=== PATIENT | female | born 1970 | race Caucasian/White ===

== ENCOUNTER 2016-12-28 10:53 | Observation (INO) | payer OTHER ==
[2016-12-28 11:06] VITALS: BMI 27.3
--- NOTE | 2016-12-28 11:24 | ED PDOC ---
Arrival/HPI - General Time Seen by Provider: 12/28/16 11:04 Historian: Patient - History of Present Illness Narrative History of Present Illness (Text): 12/28/16 11:19 Patient is a 46 year old female who presents to the emergency department with nasal congestion and sore throat that began 2 days ago and chest heaviness since yesterday. She states the sore throat resolved. Yesterday she states she began to experience chest heaviness that is worse when lying down. She states that taking a deep breath makes her cough. Patient also reports some abdominal discomfort. Denies dizziness, nausea, vomiting, or other complaints. Denies recent travel or prolonged immobilization. No history of DVT or PE. Patient reports she quit smoking 3 months ago. Patient also reports family history of cardiac disease. PMD: Dr. Cordova Time/Duration: < week Symptom Onset: Gradual Symptom Course: Unchanged Activities at Onset: Light Past Medical History - Provider Review Nursing Documentation Reviewed: Yes - Infectious Disease Hx of Infectious Diseases: None - Psychiatric Hx Substance Use: No - Surgical History Other/Comment: NODULES REMOVED FROM THROAT - Anesthesia Hx Anesthesia: No Hx Anesthesia Reactions: No Family/Social History - Physician Review Nursing Documentation Reviewed: Yes Family/Social History: CAD/TN Smoking Status: Current Some Days Smoker Hx Alcohol Use: No Hx Substance Use: No Allergies/Home Meds Allergies/Adverse Reactions: Allergies No Known Allergies Allergy (Verified 12/28/16 11:20) Home Medications: Home Meds Medication Instructions Recorded Confirmed No Known Home Med 12/28/16 12/28/16 Review of Systems - Review of Systems Constitutional: Fatigue. absent: Fevers Eyes: absent: Vision Changes, Eye Pain ENT: Sore Throat (resolved), Sinus Congestion Respiratory: Cough Cardiovascular: Chest Pain Gastrointestinal: Abdominal Pain. absent: Stool Changes, Nausea, Vomiting, Hematochezia Genitourinary Female: absent: Dysuria, Frequency, Hematuria Musculoskeletal: absent: Back Pain Skin: absent: Rash Neurological: absent: Headache, Dizziness Endocrine: absent: Diaphoresis, Polyuria Hemo/Lymphatic: absent: Easy Bleeding Psychiatric: absent: Depression Physical Exam - Physical Exam Narrative Physical Exam (Text): Head: Atraumatic. Normocephalic. Eyes: PERRL. EOMI. Conjunctivae are not pale. ENT: Bilateral nasal congestion. No pharynx edema or erythema. Tympanic membrane clear bilaterally. Mucous membranes are moist and intact. Oropharynx is clear and symmetric. Neck: Supple. Full ROM. No JVD. No lymphadenopathy. Cardiovascular: Tachycardic. Regular rhythm. No murmurs, rubs, or gallops. Distal pulses are 2+ and symmetric. Pulmonary/Chest: No evidence of respiratory distress. Mild expiratory wheeze. No rales or rhonchi. Abdominal: Soft and non-distended. Mild epigastric tenderness. Negative Cano's sign. No rebound, guarding, or rigidity. No organomegaly. Good bowel sounds. Back: No CVA tenderness. No midline tenderness. Extremities: No edema. No cyanosis. No clubbing. Full range of motion in all extremities. No calf tenderness. Skin: Skin is warm and dry. No petechiae. No purpura. Neurological: Alert, awake, and oriented to person, place, time, and situation. Normal speech. Psychiatric: Good eye contact. Normal interaction, affect, and behavior. 12/28/16 18:10 Vital Signs Reviewed: Yes Vital Signs Temp Pulse Resp BP Pulse Ox 12/28/16 17:58 86 16 110/72 96 12/28/16 14:05 97 H 16 133/87 95 12/28/16 11:43 98.5 F 93 H 18 135/79 95 Temperature: Afebrile Blood Pressure: Normal Pulse: Regular Respiratory Rate: Normal Appearance: Positive for: Well-Appearing, Non-Toxic, Comfortable Pain Distress: Mild Mental Status: Positive for: Alert and Oriented X 3 Medical Decision Making ED Course and Treatment: Differential Diagnosis included but are not limited to: Viral illness vs PE vs pneumonia vs coronary artery disease Plan: Will obtain CCU workup. Chest xray Ddimer. Prior Visits: Notes and results from previous visits were reviewed. Patient last seen in the ED on 10/01/16 for sinus congestion, pressure, and cough and discharged home. Progress Notes: On reevaluation, heart rate improved at 90 BPM. Chest X-ray unremarkable. Initial cardiac enzymes and D-dimer unremarkable. Will administer Duoneb for possible component of bronchospasm. Will admit to telemetry observation given strong family history of cardiac disease. Case discussed with Dr. Cordova who agrees with admission to telemetry observation. Asked to consult Dr. Garrison and Dr. Denton. There is epigastric pain noted which is palpable. Ultrasound obtained: US Abdomen Business Ethics Professor : Dakhel, Mahmoud Report Date : 12/28/2016 16:55:20 IMPRESSION: No ultrasound evidence of acute pathology in the abdomen. Mildly enlarged liver. On re-exam, no respiratory distress noted. No back pain or NV deficits. 12/28/16 18:11 - Lab Interpretations Lab Results: 12/28/16 11:35 12/28/16 11:35 Lab Results 12/28/16 12:02: Influenza Typ A,B (EIA) Negative for flu a/b 12/28/16 11:35: PT 10.6, INR 0.98, APTT 30.3, D-Dimer, Quantitative 0.19 12/28/16 11:35: WBC 8.8, RBC 4.61, Hgb 14.0, Hct 41.6, MCV 90.2, MCH 30.4, MCHC 33.7, RDW 12.6, Plt Count 319, MPV 9.4, Gran % 77.9 H, Lymph % (Auto) 8.6 L, [place] % (Auto) 9.1 H, Eos % (Auto) 3.9, Baso % (Auto) 0.5, Gran # 6.85 H, Lymph # 0.8 L, [place] # 0.8 H, Eos # 0.3, Baso # 0.04 12/28/16 11:35: Chloride 100, Sodium 138, Potassium 4.1, Carbon Dioxide 25, Anion Gap 17, BUN 6 L, Creatinine 0.6, Est GFR ( Amer) > 60, Est GFR (Non -Af Amer) > 60, Random Glucose 97, Calcium 9.5, Total Bilirubin 0.5, AST 28, ALT 46, Alkaline Phosphatase 71, Lactate Dehydrogenase 421, Total Creatine Kinase 100, Troponin I < 0.01, NT-Pro-B Natriuret Pep 60.1, Total Protein 8.3, Albumin 4.8, Globulin 3.5, Albumin/Globulin Ratio 1.4 12/28/16 11:35: pO2 34, VBG pH 7.36, VBG pCO2 48.0, VBG HCO3 27.1, VBG Total CO2 28.6 H, VBG O2 Sat (Calc) 73.4 H, VBG Base Excess 0.9, Chloride 105.0, Glucose 100, Lactate 1.8, FiO2 21 - RAD Interpretation Radiology Orders: 12/28/16 11:19 CHEST PORTABLE [RAD] Stat - EKG Interpretation EKG Interpretation (Text): 12/28/16 18:11 EKG at 11:00 sinus tachycardia, no acute st elevations Interpreted by ED Physician: Yes Type: 12 lead EKG - Medication Orders Current Medication Orders: Discontinued Medications Albuterol/Ipratropium (Duoneb 3 Mg/0.5 Mg (3 Ml) Ud) 3 ml IH STAT STA Stop: 12/28/16 12:55 Last Admin: 12/28/16 13:02 Dose: 3 ml Aspirin (Aspirin Chewable) 81 mg PO STAT STA Stop: 12/28/16 12:33 Last Admin: 12/28/16 13:02 Dose: 81 mg Famotidine (Pepcid) 20 mg IVP STAT STA Stop: 12/28/16 12:56 Last Admin: 12/28/16 13:02 Dose: 20 mg - Domibe Statement The provider has reviewed the documentation as recorded by the Bishop Burt Provider Scribe Attestation: All medical record entries made by the Bishop were at my direction and personally dictated by me. I have reviewed the chart and agree that the record accurately reflects my personal performance of the history, physical exam, medical decision making, and the department course for this patient. I have also personally directed, reviewed, and agree with the discharge instructions and disposition. Disposition/Present on Arrival - Present on Arrival Any Indicators Present on Arrival: No History of DVT/PE: No History of Uncontrolled Diabetes: No Urinary Catheter: No History Surgical Site Infection Following: None - Disposition Have Diagnosis and Disposition been Completed?: Yes Diagnosis: Chest pain Disposition: HOSPITALIZED Disposition Time: 13:15 Patient Plan: Admission, Observation, Telemetry Condition: FAIR
[2016-12-28 11:50] LABS: ADD MANUAL DIFF? NO
[2016-12-28 11:54] LABS: BASO # 0.04 K/mm3 (0.0-2.0); BASO % 0.5 % (0.0-3.0); EOS # 0.3 (0.0-0.7); EOS % 3.9 % (1.5-5.0); GRAN # 6.85 (1.4-6.5); GRAN % 77.9 % (50.0-68.0); HEMATOCRIT 41.6 % (36.0-48.0); LYMPH # 0.8 (1.2-3.4); LYMPH % 8.6 % (22.0-35.0); MEAN CELL VOLUME 90.2 fL (80.0-105.0); MEAN CORPUSCULAR HEMOGLOBIN 30.4 pg (25.0-35.0); MEAN CORPUSCULAR HGB CONC 33.7 g/dl (31.0-37.0); MEAN PLATELET VOLUME 9.4 fl (7.0-11.0); MONO # 0.8 (0.1-0.6); MONO % 9.1 % (1.0-6.0); PLATELET COUNT 319 10^3/uL (120.0-450.0); RED CELL DISTRIBUTION WIDTH 12.6 % (11.5-14.5); WHITE BLOOD COUNT 8.8 10^3/ul (4.5-11.0)
[2016-12-28 12:11] LABS: ALB/GLOB RATIO 1.4 (1.1-1.8); ALKALINE PHOSPHATASE 71 U/L (38-133); ALT/SGPT 46 U/L (7-56); AST/SGOT 28 U/L (15-39); BILIRUBIN,TOTAL 0.5 mg/dL (0.2-1.3); BLOOD UREA NITROGEN 6 mg/dL (7-21); CALCIUM 9.5 mg/dL (8.4-10.5); CARBON DIOXIDE 25 mmol/L (21-33); CHLORIDE 100 mmol/L (98-107); GFR AFRICAN-AMERICAN > 60; GLUCOSE,RANDOM 97 mg/dL (70-110); POTASSIUM 4.1 mmol/L (3.6-5.0); SODIUM 138 mmol/L (132-148); TOTAL PROTEIN 8.3 g/dL (5.8-8.3)
[2016-12-28 12:24] LABS: TROPONIN I < 0.01 ng/mL
[2016-12-28 12:29] LABS: VENOUS BLOOD GAS BASE EXCESS 0.9 mmol/L (0.0-2.0); VENOUS BLOOD PH 7.36 (7.32-7.43)
--- NOTE | 2016-12-28 12:37 | RAD ---
HISTORY: sob COMPARISON: 10/01/2016 FINDINGS: LUNGS: No active pulmonary disease. PLEURA: No significant pleural effusion identified, no pneumothorax apparent. CARDIOVASCULAR: Normal. OSSEOUS STRUCTURES: No significant abnormalities. VISUALIZED UPPER ABDOMEN: Normal. OTHER FINDINGS: None. IMPRESSION: No active disease.
[2016-12-28 12:49] LABS: D DIMER 0.19 mg/L FEU (0-0.50); INR 0.98 (0.93-1.08); PARTIAL THROMBOPLASTIN TIME 30.3 Seconds (23.7-30.8)
[2016-12-28] MEDS ORDERED: Albuterol-Ipratrop 3 mg / 0.5 (3 ml) UD IH STA (12:54)
[2016-12-28 13:56] LABS: AMYLASE 60 U/L (35-125); LIPASE 25 U/L (23-300)
--- NOTE | 2016-12-28 16:57 | US ---
HISTORY: upper abdominal pain COMPARISON: None. TECHNIQUE: Sonographic evaluation of the abdomen. FINDINGS: LIVER: Measures 16.3 x 11.5 x 18.5 cm. Normal echogenicity of the liver parenchyma. No mass. No intrahepatic bile duct dilatation. GALLBLADDER: Unremarkable. No gallstones. COMMON BILE DUCT: Measures 3.4 mm. No stones. No dilatation. PANCREAS: Unremarkable as visualized. No mass. No ductal dilatation. RIGHT KIDNEY: Measures 10.8 x 4.5 x 4.9cm. Normal echogenicity. No calculus, mass, or hydronephrosis. LEFT KIDNEY: Measures 10.2 x 5.7 x 4.4cm. Normal echogenicity. No calculus, mass, or hydronephrosis. SPLEEN: Normal in size and contour. No mass. AORTA: No aneurysmal dilatation. IVC: Unremarkable. OTHER FINDINGS: None. IMPRESSION: No ultrasound evidence of acute pathology in the abdomen. Mildly enlarged liver.
--- NOTE | 2016-12-28 17:05 | HP ---
HISTORY OF PRESENT ILLNESS: This is a 46-year-old female who relates that since Saturday she has fritz d some nasal congestion with cough and states that she has had some heaviness in the chest and some a bdominal discomfort. She denies any dysuria, fever or chills, nausea or vomiting or change in bowel habits. She denies any recent travel or prolonged lying at rest. SOCIAL HISTORY: She stopped smoking several months back. ALLERGIES: She has no known allergies. MEDICATIONS: She admits to using Xyzal on a p.r.n. basis, which she used earlier in the week, but di d not use yesterday. PAST MEDICAL HISTORY: Tension headaches, history of allergic rhinitis. FAMILY HISTORY: Heart disease. REVIEW OF SYSTEMS: Twelve systems are reviewed. Pertinent findings as stated above. PHYSICAL EXAMINATION: VITAL SIGNS: Show a temp of 98.5, her pulse is 97, her blood pressure is 135/79, oxygen saturation i s 95% on room air. NEUROLOGIC: The patient is alert and oriented x 3. NECK: Supple, no JVD. HEART: Has a regular S1, S2 rhythm. ABDOMEN: Soft with positive bowel sounds. LUNGS: Clear. EXTREMITIES: No evidence of edema or calf tenderness. LABORATORY DATA: Influenza type A and B are negative. Chemistry shows normal electrolytes with BUN of 6, creatinine is 0.6. LFTs are normal. Troponin is less than 0.01. Amylase is 60, lipase is 25. Blood gas lactate is 1.8. Coagulation parameters, PT is 10.6 with an INR , PTT of 30.3. D-di erwin was performed and it is returned at 0.19, which is in the normal range. She had a CBC, which dianna wed a WBC of 8.8, RBC 4.61, hemoglobin 14, hematocrit 41.6, platelet count 319. Chest x-ray is repor pao as showing no active disease. EKG showed some sinus tachycardia. The patient did state that ear lier in the week there was somewhat of a sore throat, but that seemed to have resolved. IMPRESSION: 1. A pleasant 46-year-old female with history of heaviness in the chest. One must exclude the possi bility of a cardiac etiology versus a pulmonary etiology. 2. A sense of shortness of breath. One must exclude the cardiac versus pulmonary. 3. Abdominal discomfort. We will get an abdominal ultrasound to rule out any possible GI etiology. She does state that she had some concern over the fact that she has gained some abdominal weight sin ce stopping smoking. The case has been discussed with the Emergency Room physician as well as with the patient herself and the consultants. The patient will be requested to be admitted to telemetry to be seen by cardiology and pulmonary. She received an albuterol treatment in the Emergency Room as well as a dose of aspir in and Pepcid. I have discussed these findings with the Emergency Room staff and the patient. More than 50 minutes have been spent reviewing this. Roz Cordova MD cc: [id number] TT: 12/28/2016 17:04:42 mn
[2016-12-28] MEDS: Albuterol-Ipratrop 3 mg / 0.5 (3 ml) UD IH SCH (19:21)
[2016-12-28] MEDS: MethylPREDNISolone 40 mg Vial IV SCH (21:11)
[2016-12-28] MEDS ORDERED: Pneumococcal 23-Valent Vaccine IM ONE (21:11)
[2016-12-28 21:15] LABS: TROPONIN I < 0.01 ng/mL
--- NOTE | 2016-12-28 22:01 | CARD ---
APPROVED REPORT EKG Measurement Heart [id number] <Conclusion> Sinus tachycardia Otherwise normal ECG
--- NOTE | 2016-12-28 22:08 | CON ---
DATE: 12/28/2016 REASON FOR CONSULTATION: Cardiac evaluation, chest pain. BRIEF CLINICAL HISTORY: A 46-year-old female with no significant past medical history who feels susan estion for a couple of days and then headache, taking anti-histamine and the congestion went down to the chest and feels some heaviness in the chest, so came to the Emergency Room. Denies any chest ronald n, but complained of dyspnea on exertion recently and shortness of breath on exertion. Denies any pa lpitation. ALLERGIES: ____ Take antihistamine. SOCIAL HISTORY: Ex-smoker, quit less than a year ago, used to smoke for 20 years, started at age of 14. Now, the patient more than [id number] history of smoker. Denies any history of alcohol abuse. FAMILY HISTORY: Significant for coronary artery disease. REVIEW OF SYSTEMS: A 14 point review of systems as per HPI and negative except as per HPI. MEDICATIONS: The patient is taking at home antihistamine medication. PHYSICAL EXAMINATION: VITAL SIGNS: Temperature afebrile, heart rate 97, blood pressure 135/____. HEENT: PERRLA. Extraocular muscles intact. NECK: Supple. No carotid bruits. No thyromegaly. CHEST: Clear to auscultation. HEART: S1, S2 regular. ABDOMEN: Soft. EXTREMITIES: Clubbing and cyanosis negative. LABORATORY DATA: Blood workup as follows: WBC 8.8, hemoglobin 14, hematocrit 41.6, platelet count 3 19. Chemistry shows sodium 130, potassium 4.0, chloride 100, carbon dioxide 25, anion gap of 17, BUN 6, creatinine 0.6. Troponin 0.01 negative. EKG shows sinus tachycardia. IMPRESSION: Atypical chest pain, most likely upper respiratory tract infection, but given the multip le risk factors including a smoker, family history; suggest echo and a stress test. If the patient h as echo tomorrow and if remains stable, the patient can be discharged. Follow up stress as mauricio t. Will do a lipid profile, TSH, hemoglobin A1c. We will follow with you. Thank you, Dr. Cordova, for providing the opportunity in taking care of this patient. We will follow with you. Corrina Denton MD cc: [id number] TT: 12/28/2016 22:08:06 Confirmation # [id number] Dictation # [id number] jn
--- NOTE | 2016-12-28 22:17 | CON ---
DATE: 12/28/2016 REFERRING PHYSICIAN: Dr. Roz Cordova. REASON FOR CONSULT: Cough, shortness of breath, and rhinitis. HISTORY OF PRESENT ILLNESS: This is a 46-year-old female with past medical history significant for s easonal allergies with congestion seen by ENT, been treated with steroids in the past, for the last f ew days more rhinitis, cough, shortness of breath and wheezing. No nausea, no vomiting, no diarrhea. No leg pain or leg swelling. PAST MEDICAL HISTORY: Allergy related rhinitis. ALLERGIES: None known. SOCIAL HISTORY: She is an administrative support associate. She stopped smoking a few years ago. Denies an y alcohol use. FAMILY HISTORY: Positive for asthma and heart disease. MEDICATIONS: In the ER she got Pepcid, DuoNeb, and aspirin. REVIEW OF SYSTEMS: She has headache, rhinitis, cough, sputum production, wheezing. No nausea, no vo miting, no diarrhea, no dysuria. No leg pain or leg swelling. PHYSICAL EXAMINATION: GENERAL: She is lying in the bed, mild distress secondary to cough and shortness of breath. VITAL SIGNS: Temp is 98, heart rate is 86, respiratory rate is 16, blood pressure 110/72, pulse ox 9 6% on room air. HEENT: Moist mucous membranes. Crowded airway. Mallampati score is 4. NECK: Short, thick neck. LUNGS: Has poor air flow, prolonged expiratory phase with some wheezing. HEART: S1, S2. ABDOMEN: Soft, nontender. No organomegaly. EXTREMITIES: There is no edema. NEUROLOGIC: Awake, alert, follows simple commands. LABORATORY DATA: Shows hemoglobin 14.7, hematocrit 41.6, WBC 8.8, platelet count is 319. INR is 0.9 8, PTT is 30. D-dimer is 0.19. ABG showed pH 7.36, pCO2 of 34, O2 48 that is room air, only was a venous blood. Sodium 138, potassium 4.1, chloride 100, bicarbonate 25, BUN 6, creatinine 0.6, calciu m 9.5, total bilirubin 0.5, AST 28, ALT 46, alkaline phosphatase is ____ . LDH is 421. ProBNP is 60 , albumin 4.8, amylase 60, lipase is 25. Influenza A and B is negative. Has an abdominal x-ray [facility] shows hepatomegaly, otherwise unremarkable. Chest x-ray done in the ER shows no active pulmonary d isease. IMPRESSION AND PLAN: Probably allergy trigger, new onset of asthma, history of smoking in the past, could be component of chronic lung disease, may have a sleep apnea syndrome, sinusitis. We will star t the patient on Rocephin 1 gram IV daily, Solu-Medrol 40 mg q. 8 hours, Singulair 10 mg daily, Flona se 1 spray each nostril twice a day, DuoNeb q. 6 hours, gastric prophylaxis, deep venous thrombosis p rophylaxis. Once improved, outpatient pulmonary function test, also need attended sleep study, will send test. Thank you and will follow with you. Corrina Garrison MD cc: [id number] TT: 12/28/2016 22:16:58 Confirmation # [id number] Dictation # [id number] brandy
[2016-12-29] MEDS: Albuterol-Ipratrop 3 mg / 0.5 (3 ml) UD IH SCH ×4 (01:45→19:30)
[2016-12-29] MEDS: MethylPREDNISolone 40 mg Vial IV SCH ×3 (05:28→22:25)
[2016-12-29] MEDS: Pantoprazole 40 mg EC Tab PO SCH (05:29)
[2016-12-29 07:52] LABS: ADD MANUAL DIFF? NO
[2016-12-29 07:58] LABS: BASO # 0.01 K/mm3 (0.0-2.0); BASO % 0.1 % (0.0-3.0); EOS % 0.1 % (1.5-5.0); GRAN # 7.37 (1.4-6.5); GRAN % 91.9 % (50.0-68.0); HEMATOCRIT 42.8 % (36.0-48.0); LYMPH # 0.5 (1.2-3.4); LYMPH % 6.7 % (22.0-35.0); MEAN CELL VOLUME 89.4 fL (80.0-105.0); MEAN CORPUSCULAR HEMOGLOBIN 29.9 pg (25.0-35.0); MEAN CORPUSCULAR HGB CONC 33.4 g/dl (31.0-37.0); MEAN PLATELET VOLUME 9.4 fl (7.0-11.0); MONO # 0.1 (0.1-0.6); MONO % 1.2 % (1.0-6.0); PLATELET COUNT 349 10^3/uL (120.0-450.0); RED CELL DISTRIBUTION WIDTH 12.6 % (11.5-14.5)
[2016-12-29 08:18] LABS: ALB/GLOB RATIO 1.5 (1.1-1.8); ALKALINE PHOSPHATASE 77 U/L (38-133); ALT/SGPT 42 U/L (7-56); AST/SGOT 29 U/L (15-39); BILIRUBIN,TOTAL 0.5 mg/dL (0.2-1.3); BLOOD UREA NITROGEN 10 mg/dL (7-21); CALCIUM 9.7 mg/dL (8.4-10.5); CARBON DIOXIDE 22 mmol/L (21-33); CHLORIDE 104 mmol/L (98-107); CHOLESTEROL 221 mg/dL (130-200); GFR AFRICAN-AMERICAN > 60; GLUCOSE,RANDOM 154 mg/dL (70-110); MAGNESIUM 2.1 mg/dL (1.7-2.2); PHOSPHOROUS 4.1 mg/dL (2.5-4.5); POTASSIUM 4.2 mmol/L (3.6-5.0); SODIUM 140 mmol/L (132-148); TOTAL PROTEIN 7.9 g/dL (5.8-8.3)
[2016-12-29 08:33] LABS: TROPONIN I < 0.01 ng/mL
--- NOTE | 2016-12-29 10:18 | PN ---
DATE: 12/29/2016 A 46-year-old pleasant female resting in bed this morning. She states that she is feeling a bit more comfortable. PHYSICAL EXAMINATION: VITAL SIGNS: The patient has a temp of 97.3. Her pulse is 94. Her blood pressure is 131/76, her ox ygen saturation is 99% on room air. GENERAL: She is alert and oriented x 3. NECK: Supple. LUNGS: Clear. HEART: Has a regular S1, S2 rhythm. ABDOMEN: Soft with positive bowel sounds. EXTREMITIES: No evidence of edema. LABORATORY DATA: Shows a WBC of 8, RBC 4.79, hemoglobin 14, hematocrit 42.8, platelet count 349. Ch emistry shows normal electrolytes. The random blood sugar was 154, the patient has been placed on st eroids by pulmonary. Her LFTs are normal. Her troponins are negative at 0.01. She has a triglyceri de level of 162. Cholesterol 221. Her HDL is 74. Her TSH level is 1.16. She had an ultrasound of her abdomen, which was read as showing a mild enlargement of the liver. Her chest x-ray was reported as showing no acute changes. Fruit Washer notes of Dr. Denton, cardiology and Dr. Garrison, pulmonary are noted and appreciated. Cardiology has assessed the patient documenting the fact that the patient has risk factors with famil y history, smoking and hyperlipidemia and has recommended that the patient have an echocardiogram and stress test given the fact that she presented with some chest discomfort. Pulmonary has assessed th e patient and feels that the patient has onset of asthma in the setting of a history of possible slee p apnea and has placed the patient on IV therapy and steroid treatment and antibiotics. The clinical findings to date and her treatment plan to date have all been discussed with the patient and the individual consultants. She is on deep venous thrombosis prophylaxis. We will continue cur rent level of care. Await the ordered diagnostic studies and followup notes of the individual consul tants. Roz Cordova MD cc: [id number] TT: 12/29/2016 10:17:57 Confirmation # [id number] Dictation # [id number] brandy
[2016-12-29] MEDS: cefTRIAXone 1 gm 1 GM/100 ML BAG IVPB SCH (10:25)
[2016-12-29] MEDS: Enoxaparin 30 mg Syringe SC SCH (10:26)
[2016-12-29] MEDS: Fluticasone Nasal 50 mcg/Spray NS SCH (11:13)
--- NOTE | 2016-12-29 21:41 | PN ---
DATE: 12/29/2016 REFERRING PHYSICIAN: Dr. Cordova. SUBJECTIVE: The patient is sitting up in a bed, feels better, decreased cough, decreased shortness o f breath. No nausea, no vomiting, diarrhea. No leg pain or leg swelling. OBJECTIVE: GENERAL: No acute distress. VITAL SIGNS: Temp is 98, heart rate is 99, respiratory rate is 20, blood pressure 139/78, pulse ox 9 9% on room air. HEENT: Moist mucous membranes. Crowded airway. Mallampati score is 4. NECK: Supple. No JVD. LUNGS: Has a prolonged expiratory phase, improved airflow. HEART: S1 and S2. ABDOMEN: Soft, nontender. No organomegaly. EXTREMITIES: There is no edema. NEUROLOGIC: Awake, alert, follows simple commands. MEDICATIONS: He is on DuoNeb q. 6 hours, Flonase 1 spray each nostril twice a day, Lovenox 30 mg sub Q daily, Protonix 40 mg daily, Rocephin 1 gram IV daily, Singulair 10 mg daily, Solu-Medrol 40 mg q. 8 hours. LABORATORY DATA: Shows hemoglobin 14.3, hematocrit 42.8, WBC 8.0, platelet count . Sodium 140, potassium 4.2, chloride 104, bicarbonate 22, BUN 10, creatinine 0.6, glucose is 154, calcium 9.7, ph osphorus 4.1, magnesium is 2.1, AST 29, ALT 42, alkaline phosphatase is 77. Troponin less than 0.01, albumin is 4.7. Triglycerides 162. Lipase is 25. Amylase is 60. Had echocardiogram done, report is pending. IMPRESSION AND PLAN: Probably has asthma triggered by allergies, history of smoking in the past. Ma y have a component of sleep apnea syndrome, sinusitis. Pulmonary point of view, doing better. Bakari nue antibiotics. Continue inhaled bronchodilator. Decrease Solu-Medrol to 40 q. 12 hours. Gastric prophylaxis. Deep venous thrombosis prophylaxis. Sleep apnea precaution. Out of bed to chair. Upo n discharge, we need outpatient sleep study and PFT. Thank you and will follow with you. Corrina Garrison MD cc: [id number] TT: 12/29/2016 21:40:47 Confirmation # [id number] Dictation # [id number] mn
[2016-12-30] MEDS: Albuterol-Ipratrop 3 mg / 0.5 (3 ml) UD IH SCH ×4 (01:44→19:24)
[2016-12-30] MEDS: Pantoprazole 40 mg EC Tab PO SCH (06:42)
[2016-12-30] MEDS: Enoxaparin 30 mg Syringe SC SCH (09:30)
[2016-12-30] MEDS: cefTRIAXone 1 gm 1 GM/100 ML BAG IVPB SCH (09:30)
[2016-12-30] MEDS: Fluticasone Nasal 50 mcg/Spray NS SCH (09:30)
[2016-12-30] MEDS: MethylPREDNISolone 40 mg Vial IV SCH ×2 (09:43→21:30)
--- NOTE | 2016-12-30 10:15 | PN ---
DATE: 12/30/2016 A 46-year-old female resting on telemetry this morning. Nursing staff relates that the patient has b een having bouts of tachycardia, and this has been confirmed by the EKG gambling monitor. The patie nt, at this point, states that from time to time she gets some anxiousness. She feels something. Sh e cannot say specifically what. PHYSICAL EXAMINATION: VITAL SIGNS: Her temp is 97.9. Her pulse, at this time, is 103. Her blood pressure is 111/56. Her oxygen saturation is 94% on room air. GENERAL: She is alert and oriented x 3. NECK: Supple. LUNGS: Clear. HEART: S1, S2 rhythm. ABDOMEN: Soft, scaphoid, positive bowel sounds. EXTREMITIES: No evidence of edema. LABORATORY DATA: She has an echocardiogram, which is pending ____. Dr. Garrison's pulmonary nodule is noted. Her steroids have been adjusted. She continues on respiratory treatments. She does not hav e any abdominal complaints at this time. IMPRESSION: A 46-year-old female with asthma allergy component, possible sleep apnea, and chest pain . She is currently on albuterol q. 6 hours, Flonase at bedtime, Lovenox subQ, Protonix 40 mg daily, Rocephin IV, Singulair at bedtime 10 mg, Solu-Medrol 40 mg q. 12, Tylenol p.r.n. for headache. Roz Cordova MD cc: [id number] TT: 12/30/2016 10:15:18 Confirmation # [id number] Dictation # [id number] brandy
[2016-12-30] MEDS ORDERED: MethylPREDNISolone 40 mg Vial IV SCH (23:01)
--- NOTE | 2016-12-30 23:19 | PN ---
DATE: 12/30/2016 REFERRING PHYSICIAN: Dr. Cordova. SUBJECTIVE: She is sitting up in a bed, feels much better, decreased cough, decreased shortness of b reath. No nausea, no vomiting, diarrhea. No leg pain or leg swelling. OBJECTIVE: GENERAL: No acute distress. VITAL SIGNS: Temp is 98, heart rate is 88, respiratory rate is 16, blood pressure 135/76, pulse ox 9 4% on room air. HEENT: Moist mucous membrane. Crowded airway. NECK: Supple, no JVD. LUNGS: Have a prolonged expiratory phase. HEART: S1 and S2. ABDOMEN: Soft, nontender. No organomegaly. EXTREMITIES: There is no edema. NEUROLOGIC: Awake, alert, follows simple commands. MEDICATIONS: She is on DuoNeb q. 6 hours, Flonase 1 spray each nostril daily, Lovenox 30 mg subQ lance ly, Protonix 40 mg daily, Rocephin 1 gram daily, Singulair 10 mg daily, Solu-Medrol 40 mg q. 12 hours , Tylenol on a p.r.n. basis. LABORATORY DATA: Reviewed. No new lab is available. Echocardiogram done, report is pending. IMPRESSION AND PLAN: Exacerbation of asthma triggered by allergies. History of smoking. May have a component of sleep apnea syndrome, resolving sinusitis. Will decrease Solu-Medrol to 20 mg q. 12 ho urs. Continue antibiotics. Gastric prophylaxis, deep vein thrombosis prophylaxis. Will recommend o utpatient pulmonary function testing sleep study upon discharge. Thank you. Will follow with you. Corrina Garrison MD cc: [id number] TT: 12/30/2016 23:18:17 Confirmation # [id number] Dictation # [id number] mn
[2016-12-31] MEDS: Albuterol-Ipratrop 3 mg / 0.5 (3 ml) UD IH SCH ×3 (03:28→13:39)
[2016-12-31] MEDS: Pantoprazole 40 mg EC Tab PO SCH (05:30)
[2016-12-31 05:44] VITALS: PULSE 84; O2SAT 97
[2016-12-31] MEDS: Fluticasone Nasal 50 mcg/Spray NS SCH (14:03)
[2016-12-31] MEDS: Enoxaparin 30 mg Syringe SC SCH (14:03)
[2016-12-31] MEDS: cefTRIAXone 1 gm 1 GM/100 ML BAG IVPB SCH (14:04)
--- NOTE | 2016-12-31 14:22 | PN ---
DATE: 12/31/2016 REASON FOR CONSULTATION AND FOLLOWUP: Cardiac evaluation, chest pain. BRIEF CLINICAL HISTORY: A 46-year-old female with no significant past medical history who feels condition for a couple of days and then headache, taking antihistamine and then congestion went down to the chest, having multiple risk factors for CAD, patient is scheduled for a stress test and echo. Echo was done yesterday, but was not placed to read so far. It was told by the tech that it looks okay. Awaiting for the placement in the system so it can be read. PHYSICAL EXAMINATION: VITAL SIGNS: Temperature afebrile, heart rate 84, blood pressure 116/68. HEENT: PERRLA. Extraocular muscles intact. NECK: Supple. No carotid bruits. No thyromegaly. CHEST: Clear to auscultation. HEART: S1, S2 regular. ABDOMEN: Soft. EXTREMITIES: Clubbing, cyanosis negative. BLOOD WORKUP: WBC 8, hemoglobin 14.1 hematocrit 42.8, platelet count 349. Chemistry shows sodium 140, potassium 4.2 , chloride 104, carbon dioxide 22, anion gap of 12, BUN 10, creatinine 0.6. Troponin x 3 negative. TSH 1.16. Triglycerides 162, cholesterol 221, LDL 122 , HDL 74. IMPRESSION: Hyperlipidemia, allergy, chest pain, so far negative for myocardial infarction. PLAN: We will review the echo when it is placed to be read because system is down so it could not be placed. Stress test today. Further recommendation after the stress test. We will follow with you. Thank you, Dr. Cordova, for providing us the opportunity in taking care of the patient. Corrina Denton MD cc: [id number] TT: 12/31/2016 14:21:47 Confirmation # [id number] Dictation # [id number] en MTDD
--- NOTE | 2016-12-31 17:27 | CARD ---
APPROVED REPORT EXAM: Two-dimensional and M-mode echocardiogram with Doppler and color Doppler. INDICATION Chest Pain 2D DIMENSIONS IVSd0.8 (0.7-1.1cm)LVDd3.9 (3.9-5.9cm) PWd0.7 (0.7-1.1cm)LVDs2.0 (2.5-4.0cm) FS (%) 50.0 %LVEF (%)81.9 (>50%) M-Mode DIMENSIONS Left Atrium (MM)3.40 (2.5-4.0cm)Aortic Root2.70 (2.2-3.7cm) Aortic Cusp Exc.1.80 (1.5-2.0cm) Aortic Valve AoV Peak Ocajatci266.0cm/sAoV VTI26.5cmAO Peak GR.11mmHg LVOT Peak Zydxygkw696.0cm/sLVOT VTI21.50cmAO Mean GR.5mmHg Mitral Valve MV E Zofatpof79.8cm/sMV A Mnxnkdue09.4cm/sE/A ratio0.7 TDI Lateral E' Peak V12.50cm/sMedial E' Peak V7.24cm/sE/Lateral E'4.6 E/Medial E'8.0 Tricuspid Valve TR Peak Ffmgbivv237xt/sRAP WDRJMTGO08xyFhND Peak Gr.17mmHg INII76txSl LEFT VENTRICLE The left ventricle is normal size. There is normal left ventricular wall thickness. The left ventricular function is normal.EF-70-75% There is normal LV segmental wall motion. Transmitral Doppler flow pattern is Grade III-reversible restrictive diastolic dysfunction. No left ventricle thrombus noted on this study. There is no ventricular septal defect visualized. There is no left ventricular aneurysm. There is no mass noted in the left ventricle. RIGHT VENTRICLE The right ventricle is normal size. There is normal right ventricular wall thickness. The right ventricular systolic function is normal. ATRIA The left atrium size is normal. The right atrium size is normal. The interatrial septum is intact with no evidence for an atrial septal defect. AORTIC VALVE The aortic valve is normal in structure. No aortic regurgitation is present. There is no aortic valvular stenosis. There is no aortic valvular vegetation. MITRAL VALVE The mitral valve is thickened but opens well. There is no mitral valve regurgitation noted. There is no mitral valve stenosis. There is no evidence of mitral valve prolapse. TRICUSPID VALVE The tricuspid valve leaflets are thickened , but open well. There is trace tricuspid regurgitation.RVSP-27 mmof Hg. There is no tricuspid valve stenosis. There is no tricuspid valve prolapse or vegetation. PULMONIC VALVE The pulmonary valve is normal in structure. GREAT VESSELS The aortic root is normal in size. The ascending aorta is normal in size. The pulmonary artery is normal. The IVC is normal in size and collapses >50% with inspiration. PERICARDIAL EFFUSION There is no pleural effusion. There is no pericardial effusion. <Conclusion> Normal Chamber Size. EF-70-75% Trace- TR. RVSP-27 mmof hg.
[2016-12-31 18:53] VITALS: BP 101/59; RESP 20; TEMP 98.5
--- NOTE | 2016-12-31 22:02 | PN ---
DATE: 12/31/2016 REFERRING PHYSICIAN: Dr. Cordova. SUBJECTIVE: She is sitting side of the bed, feels better, decreased cough, decreased shortness of br eath. No nausea, vomiting, diarrhea. No leg pain or leg swelling. OBJECTIVE: GENERAL: No acute distress. VITAL SIGNS: Temperature is 98, heart rate is 84, respiratory rate is 20, blood pressure 111/59, pul se ox 97% on room air. HEENT: Moist mucous membranes. Crowded airway. Mallampati score is 4. NECK: Supple. No JVD. LUNGS: Has a fair airflow. HEART: S1, S2. ABDOMEN: Soft, nontender. No organomegaly. EXTREMITIES: There is no edema. NEUROLOGIC: Awake, alert, follows simple commands. MEDICATIONS: Reviewed and noted. No new changes in medication reported. LABORATORY DATA: Reviewed. No new lab is available. IMPRESSION AND PLAN: Exacerbation of asthma triggered by allergies, history of smoking, may have a s leep apnea syndrome, resolving sinusitis. The patient will be discharged home today to taper dose of steroids brio 200/25 one puff daily, ProAir HFA 2 puffs q. 4 hours p.r.n., Singulair 10 mg at bedtim e. The patient educated about smoking and its risks. She expressed understanding and will stopped s moking. Also has hyperlipidemia, strict diet protocol. Advised patient about it. Will need followu p lipid profile as outpatient. Also, need attended sleep study to rule out sleep apnea syndrome, PFT to evaluate lung her parenchyma. The case discussed with Dr. Cordova. The patient may be discharged home. Corrina Garrison MD cc: [id number] TT: 12/31/2016 22:01:56 Confirmation # [id number] Dictation # [id number] jn
--- NOTE | 2016-12-31 23:27 | CARD ---
APPROVED REPORT Protocol: LACI Test Type: Sestamibi Stress Test Attending Physician: Dr. Corrina Real Referring Physician: Dr. Roz Cordova Test Indications: Chest Pain Height:5 ft 1 in Weight:144lbs Medications: Lovenox Floherminiae Darenulair Medical History: 46 y/o female hx of chest pain Target HR: 175 bpm Resting ECG: RSR. Resting Heart Rate: 82 bpm Resting Blood Pressure: 122/60mmHg Submaximum (85%): 149 bpm POST EXERCISE Reason for Termination: Fatigue Target HR: No Max HR: 151 bpm 87% of Maximum Predicted HR: 175 bpm Exercise duration: 08:48 min:sec, 3 Stage Exercise capacity: 10.1METs Max Blood Pressure: 136/82mmHg Blood Pressure response to exercise: normal resting BP - appropriate response Heart Rate response to exercise: appropriate Chest Pain: No, none Angina index: 0 Arrhythmia: No, none ST Change: Yes, ST_T Changes. Deviation: 0 mm TEST SUMMARY [id number]:180.00.01.073/.2. [id number]:[id number]/60.3. EXERCISESTAGE 103:[id number]/74.1. EXERCISESTAGE 203:[id number]/82.0. EXERCISESTAGE 302:[id number]/82.0. [id number]/80.3. INTERPRETATION Stress EKG Conclusion: MYOVIEW NUCLEAR STRESS TEST STPPED AFTER 8 MINUTES AND 48 SECONDS OF LACI PROTOCOL DUE TO FATIGUE. PATIENT ACHIEVED 87% OF PREDICTED HEART RATE. NO CHEST PAIN. NO ST-T CHANGES. NUCLEAR SCAN REPORT PENDING. Signed by Corrina Real Electronically Approved: 12/31/2016 11:58:02 EXAM: Myocardial Perfusion REST/STRESS Stress Test Type: Exercise Treadmill Imaging Protocol Rest Spect myocardial perfusion imaging was performed in supine position 45 minutes following the injection of 10.7 mCi of Tc-99 Myoview. At peak stress, the patient was injected intravenously with 30.5mCi of Tc-99 tetrofosmin after an exercise time of 8 minutes and 48 seconds. Gated Stress Spect was performed 65 minutes after intravenous Tc-99 Myoview injection. The images were gated to evaluate regional wall motion and calculate ventricular ejection fraction.Images were reconstructed using backfilter projection method in short horizontal and verticle long axis. Spect slices were generated. LV Perfusion The quality of the study is good. The left ventricle is normal in size. The right ventricle is unremarkable. The lung uptake is normal. The distribution of tracer reveals an area of mildly decreased perfusion involving apical wall on the stress study. The remainder of the LV myocardium is unremarkable. The rest myocardial perfusion study shows no significant change. Wall Motion Wall motion study shows good contractility of the left ventricle. LVEF = 71%. Conclusion 1. Essentially normal SPECT myocardial perfusion study. 2. Fixed, apical defect is most likely due to breast attenuation. 3. Normal gated wall motion of the left ventricle.
--- NOTE | 2017-01-21 14:19 | DS ---
A 46-year-old female admitted to [facility] with complaints of chest pain and chest congestion and was seen in consultation by pulmonary, Dr. Garrison, cardiology, Dr. Denton in the hospital. She was thought to have had a possible sleep apnea disorder with a recommendation to do pulmonary functions and a sleep study as an outpatient. She was also felt to have had an allergy and related to asthma. She had a history of smoking and she was seen by Dr. Garrison, to be followed as an outpatient on bron chodilator therapy. She had a stress test with Dr. Denton, which was reported as being negative. She had an abdominal ultrasound, which showed mildly enlarged liver, but no evidence of acute pathology i n the abdomen. She had an echocardiogram, which showed no evidence of pericardial effusion, normal c hamber size, ejection fraction of 70%-75% with some trace tricuspid regurg and a right ventricular sy stolic pressure of 27 mm. She will be followed up as an outpatient to be seen by cardiology and pulm power as an outpatient. Roz Cordova MD cc: [id number] TT: 01/21/2017 14:18:17 en
== END 2016-12-31 19:58 | disposition home or self-care (01) ==
LOC: ED 10:53 → ERH 13:02 → 2RSO 18:13 → INTOOBSV 12-29 19:33 → OBSVTOIN 12-29 19:33
PROVIDERS: ADMIT Internal Medicine; ATTEND Internal Medicine
DX: J45.901 Unspecified asthma with (acute) exacerbation (principal); E78.5 Hyperlipidemia, unspecified; G47.30 Sleep apnea, unspecified; J32.9 Chronic sinusitis, unspecified; Z87.891 Personal history of nicotine dependence
CPT/HCPCS: 36415; 71010; 76700; 78452; 80053; 80061; 82150; 82550; 82803; 83036; 83615; 83690; 83735; 83880; 84100; 84443; 84484; 85025; 85378; 85610; 85730; 87804; 93005; 93017; 93306; 94640; 94760; 96374; 99285; A9502; G0378; J0696; J1650; J2920